=== PATIENT | male | born 1950 | race Caucasian/White ===

== ENCOUNTER 2017-03-18 11:21 | Inpatient (IN) ==
[2017-03-18] MEDS ORDERED: DOCUSATE SODIUM 100 MG CAPSULE PO PRN (12:04)
[2017-03-18] MEDS ORDERED: ONDANSETRON 4 MG/2 ML VIAL IV PRN (12:04)
[2017-03-18] MEDS ORDERED: ALBUTEROL/IPRATROPIUM 3 ML NEB RESP TX PRN (12:14)
[2017-03-18 16:22] LABS: Basophils # 0.1 10*3/uL (0.0-0.2); Basophils % 0.8 % (0.0-0.8); Eosinophils # 0.2 10*3/uL (0.0-0.87); Eosinophils % 1.7 % (0.00-10.9); Hematocrit 41.1 VOL% (42.0-52.0); Immature Granulocytes % 0.5 %; Immature Granulocytes Absolute 0.06 #; Lymphocytes # 1.8 10*3/uL (1.4-4.0); Mean Corpuscular HGB Conc 34.1 GM/DL (32-36); Mean Corpuscular Hemoglobin 31 PG (27-34); Mean Corpuscular Volume 91.3 FL (87-102); Mean Platelet Volume 10.8 FL (9.6-12.0); Monocytes # 1.2 10*3/uL (0.11-0.8); Monocytes % 10.8 % (1.7-12.7); Neutrophils # 7.7 10*3/uL (1.4-7.4); Neutrophils % 70.2 % (38.7-73.9); Platelet Count 265 T/CUMM (130-400); Red Cell Distribution Width 12.5 % (9.3-17.3)
[2017-03-18 16:53] LABS: Alanine Aminotransferase 27 U/L (16-61); Albumin 3.5 G/DL (3.4-5.0); Alkaline Phosphatase 88 U/L (45-117); Aspartate Amino Transferase 18 U/L (0-37); Bilirubin,Total < 0.39 MG/DL (0.2-1.0); Blood Urea Nitrogen 12 MG/DL (7-18); Calcium 9.3 MG/DL (8.5-10.1); Glucose 117 MG/DL (74-106); Osmolality,Calculated 266.4 MOS/KG (273-304); Potassium 3.8 MMOL/L (3.5-5.1); Sodium 133 MMOL/L (136-145); Total Protein 7.4 G/DL (6.4-8.3)
[2017-03-18] MEDS ORDERED: SILVER SULFADIAZINE 1% CREAM 25 GM TUBE TOP SCH (17:00)
[2017-03-18] MEDS: LORATADINE 10 MG TABLET PO SCH (17:08)
[2017-03-18] MEDS: methylPREDNISolone SOD SUC 125 MG/2 ML VIAL IV SCH (17:08)
[2017-03-18] MEDS: LEVOFLOXACIN INJ 500 MG in PREMIX 1 EACH IV SCH (17:08)
[2017-03-18] MEDS: SODIUM CHLORIDE 0.9% 1,000 ML IV SCH (17:09)
[2017-03-18] MEDS: SILVER SULFADIAZINE 1% CREAM 400 GM JAR TOP SCH (18:14)
[2017-03-18] MEDS: ENOXAPARIN 40 MG/0.4 ML SYRINGE SUBCUT SCH (21:10)
[2017-03-18] MEDS: ACETAMINOPHEN 325 MG TABLET PO PRN (21:10)
[2017-03-18] MEDS: SIMVASTATIN 10 MG TABLET PO SCH (21:11)
[2017-03-18] MEDS: buPROPion 75 MG TABLET PO SCH (21:11)
[2017-03-18] MEDS: CARVEDILOL 3.125 MG TABLET PO SCH (21:13)
[2017-03-19] MEDS: methylPREDNISolone SOD SUC 125 MG/2 ML VIAL IV SCH ×2 (06:09→21:29)
[2017-03-19] MEDS: FUROSEMIDE 20 MG TABLET PO SCH ×2 (08:16→15:01)
[2017-03-19] MEDS: LOSARTAN 50 MG TABLET PO SCH (08:17)
[2017-03-19] MEDS: LORATADINE 10 MG TABLET PO SCH (08:17)
[2017-03-19] MEDS: PANTOPRAZOLE 40 MG TABLET PO SCH (08:17)
[2017-03-19] MEDS: ASPIRIN 325 MG TABLET PO SCH (08:17)
[2017-03-19] MEDS: ROFLUMILAST 500 MCG TABLET PO SCH (08:17)
[2017-03-19] MEDS: CARVEDILOL 3.125 MG TABLET PO SCH ×2 (08:17→21:27)
[2017-03-19] MEDS: MINOXIDIL 2.5 MG TABLET PO SCH (08:17)
[2017-03-19] MEDS: amLODIPine 10 MG TABLET PO SCH (08:17)
[2017-03-19] MEDS: OMEGA 3 ACID ETHYL ESTERS 1 GM CAPSULE PO SCH (08:17)
[2017-03-19] MEDS: hydroCHLOROthiazide 25 MG TABLET PO SCH (08:17)
[2017-03-19] MEDS: buPROPion 75 MG TABLET PO SCH ×2 (08:18→21:27)
[2017-03-19] MEDS: MAGNESIUM CHLORIDE 64 MG TABLET PO SCH (08:18)
[2017-03-19] MEDS ORDERED: FUROSEMIDE 20 MG/2 ML VIAL IV ONE (09:00)
[2017-03-19] MEDS: SILVER SULFADIAZINE 1% CREAM 400 GM JAR TOP SCH (11:40)
[2017-03-19] MEDS: ACETAMINOPHEN 325 MG TABLET PO PRN ×2 (12:24→23:59)
[2017-03-19] MEDS: SODIUM CHLORIDE 0.9% 1,000 ML IV SCH (12:32)
[2017-03-19] MEDS: ALBUTEROL/IPRATROPIUM 3 ML NEB RESP TX SCH ×2 (13:31→19:17)
[2017-03-19] MEDS: SIMVASTATIN 10 MG TABLET PO SCH (21:27)
[2017-03-19] MEDS: ENOXAPARIN 40 MG/0.4 ML SYRINGE SUBCUT SCH (21:28)
[2017-03-19] MEDS: LEVOFLOXACIN INJ 500 MG in PREMIX 1 EACH IV SCH (21:31)
[2017-03-20] MEDS: ALBUTEROL/IPRATROPIUM 3 ML NEB RESP TX SCH ×4 (01:59→19:27)
[2017-03-20] MEDS: LOSARTAN 50 MG TABLET PO SCH (09:28)
[2017-03-20] MEDS: buPROPion 75 MG TABLET PO SCH ×2 (09:29→20:38)
[2017-03-20] MEDS: ROFLUMILAST 500 MCG TABLET PO SCH (09:29)
[2017-03-20] MEDS: amLODIPine 10 MG TABLET PO SCH (09:29)
[2017-03-20] MEDS: MINOXIDIL 2.5 MG TABLET PO SCH (09:29)
[2017-03-20] MEDS: MAGNESIUM CHLORIDE 64 MG TABLET PO SCH (09:29)
[2017-03-20] MEDS: FUROSEMIDE 20 MG TABLET PO SCH ×2 (09:29→16:57)
[2017-03-20] MEDS: PANTOPRAZOLE 40 MG TABLET PO SCH (09:29)
[2017-03-20] MEDS: methylPREDNISolone SOD SUC 125 MG/2 ML VIAL IV SCH ×2 (09:29→20:37)
[2017-03-20] MEDS: LORATADINE 10 MG TABLET PO SCH (09:29)
[2017-03-20] MEDS: ASPIRIN 325 MG TABLET PO SCH (09:29)
[2017-03-20] MEDS: hydroCHLOROthiazide 25 MG TABLET PO SCH (09:29)
[2017-03-20] MEDS: SILVER SULFADIAZINE 1% CREAM 400 GM JAR TOP SCH (09:30)
[2017-03-20] MEDS: CARVEDILOL 3.125 MG TABLET PO SCH ×2 (09:35→20:38)
[2017-03-20] MEDS: OMEGA 3 ACID ETHYL ESTERS 1 GM CAPSULE PO SCH (09:35)
[2017-03-20] MEDS: ACETAMINOPHEN 325 MG TABLET PO PRN ×2 (11:20→17:04)
[2017-03-20] MEDS: SODIUM CHLORIDE 0.9% 1,000 ML IV SCH (20:36)
[2017-03-20] MEDS: ENOXAPARIN 40 MG/0.4 ML SYRINGE SUBCUT SCH (20:37)
[2017-03-20] MEDS: LEVOFLOXACIN INJ 500 MG in PREMIX 1 EACH IV SCH (20:37)
[2017-03-20] MEDS: SIMVASTATIN 10 MG TABLET PO SCH (20:38)
[2017-03-21] MEDS: ALBUTEROL/IPRATROPIUM 3 ML NEB RESP TX SCH ×4 (00:37→19:55)
[2017-03-21 05:51] LABS: Basophils % 0.1 % (0.0-0.8); Eosinophils % 0.1 % (0.00-10.9); Hematocrit 39.1 VOL% (42.0-52.0); Hemoglobin 13.4 GM/DL (14.0-18.0); Immature Granulocytes % 0.7 %; Immature Granulocytes Absolute 0.12 #; Lymphocytes # 1.2 10*3/uL (1.4-4.0); Lymphocytes % 6.6 % (21.2-54.2); Mean Corpuscular HGB Conc 34.3 GM/DL (32-36); Mean Corpuscular Hemoglobin 31 PG (27-34); Mean Corpuscular Volume 90.7 FL (87-102); Mean Platelet Volume 10.8 FL (9.6-12.0); Monocytes # 0.5 10*3/uL (0.11-0.8); Monocytes % 2.6 % (1.7-12.7); Neutrophils % 89.9 % (38.7-73.9); Platelet Count 287 T/CUMM (130-400); Red Blood Count 4.31 MC/CUMM (3.8-5.5); Red Cell Distribution Width 12.5 % (9.3-17.3); White Blood Count 17.8 T/CUMM (4-12)
[2017-03-21 06:08] LABS: Calcium 8.5 MG/DL (8.5-10.1); Magnesium 2.3 MG/DL (1.8-2.4); Potassium 4.4 MMOL/L (3.5-5.1)
[2017-03-21] MEDS: ACETAMINOPHEN 325 MG TABLET PO PRN ×2 (08:04→16:08)
[2017-03-21] MEDS: FUROSEMIDE 20 MG TABLET PO SCH ×2 (08:04→16:58)
[2017-03-21] MEDS: LORATADINE 10 MG TABLET PO SCH (09:28)
[2017-03-21] MEDS: MINOXIDIL 2.5 MG TABLET PO SCH (09:28)
[2017-03-21] MEDS: buPROPion 75 MG TABLET PO SCH ×2 (09:28→21:27)
[2017-03-21] MEDS: OMEGA 3 ACID ETHYL ESTERS 1 GM CAPSULE PO SCH (09:28)
[2017-03-21] MEDS: LOSARTAN 50 MG TABLET PO SCH (09:28)
[2017-03-21] MEDS: hydroCHLOROthiazide 25 MG TABLET PO SCH (09:28)
[2017-03-21] MEDS: ROFLUMILAST 500 MCG TABLET PO SCH (09:28)
[2017-03-21] MEDS: CARVEDILOL 3.125 MG TABLET PO SCH ×2 (09:28→21:27)
[2017-03-21] MEDS: MAGNESIUM CHLORIDE 64 MG TABLET PO SCH (09:28)
[2017-03-21] MEDS: amLODIPine 10 MG TABLET PO SCH (09:28)
[2017-03-21] MEDS: ASPIRIN 325 MG TABLET PO SCH (09:29)
[2017-03-21] MEDS: methylPREDNISolone SOD SUC 125 MG/2 ML VIAL IV SCH ×2 (09:29→21:31)
[2017-03-21] MEDS: PANTOPRAZOLE 40 MG TABLET PO SCH (09:34)
[2017-03-21] MEDS: SILVER SULFADIAZINE 1% CREAM 400 GM JAR TOP SCH (09:34)
[2017-03-21] MEDS: SODIUM CHLORIDE 0.9% 1,000 ML IV SCH (17:35)
[2017-03-21] MEDS: LEVOFLOXACIN INJ 500 MG in PREMIX 1 EACH IV SCH (21:25)
[2017-03-21] MEDS: ENOXAPARIN 40 MG/0.4 ML SYRINGE SUBCUT SCH (21:27)
[2017-03-21] MEDS: SIMVASTATIN 10 MG TABLET PO SCH (21:27)
[2017-03-22] MEDS: ALBUTEROL/IPRATROPIUM 3 ML NEB RESP TX SCH ×5 (00:02→20:31)
[2017-03-22] MEDS: ACETAMINOPHEN 325 MG TABLET PO PRN ×3 (02:18→21:04)
[2017-03-22] MEDS: amLODIPine 10 MG TABLET PO SCH (09:38)
[2017-03-22] MEDS: hydroCHLOROthiazide 25 MG TABLET PO SCH (09:38)
[2017-03-22] MEDS: LOSARTAN 50 MG TABLET PO SCH (09:39)
[2017-03-22] MEDS: ROFLUMILAST 500 MCG TABLET PO SCH (09:39)
[2017-03-22] MEDS: buPROPion 75 MG TABLET PO SCH ×2 (09:39→21:03)
[2017-03-22] MEDS: MAGNESIUM CHLORIDE 64 MG TABLET PO SCH (09:39)
[2017-03-22] MEDS: OMEGA 3 ACID ETHYL ESTERS 1 GM CAPSULE PO SCH (09:39)
[2017-03-22] MEDS: PANTOPRAZOLE 40 MG TABLET PO SCH (09:39)
[2017-03-22] MEDS: FUROSEMIDE 20 MG TABLET PO SCH ×2 (09:39→16:32)
[2017-03-22] MEDS: LORATADINE 10 MG TABLET PO SCH (09:40)
[2017-03-22] MEDS: CARVEDILOL 3.125 MG TABLET PO SCH ×2 (09:40→21:03)
[2017-03-22] MEDS: methylPREDNISolone SOD SUC 125 MG/2 ML VIAL IV SCH ×2 (09:40→21:05)
[2017-03-22] MEDS: MINOXIDIL 2.5 MG TABLET PO SCH (09:40)
[2017-03-22] MEDS: ASPIRIN 325 MG TABLET PO SCH (09:40)
[2017-03-22] MEDS: SILVER SULFADIAZINE 1% CREAM 400 GM JAR TOP SCH (09:47)
[2017-03-22] MEDS: SODIUM CHLORIDE 0.9% 1,000 ML IV SCH (16:32)
[2017-03-22] MEDS: SIMVASTATIN 10 MG TABLET PO SCH (21:03)
[2017-03-22] MEDS: LEVOFLOXACIN INJ 500 MG in PREMIX 1 EACH IV SCH (21:05)
[2017-03-22] MEDS: ENOXAPARIN 40 MG/0.4 ML SYRINGE SUBCUT SCH (21:06)
[2017-03-23] MEDS: ALBUTEROL/IPRATROPIUM 3 ML NEB RESP TX SCH ×2 (01:30→07:37)
[2017-03-23] MEDS: LOSARTAN 50 MG TABLET PO SCH (08:51)
[2017-03-23] MEDS: MINOXIDIL 2.5 MG TABLET PO SCH (08:51)
[2017-03-23] MEDS: LORATADINE 10 MG TABLET PO SCH (08:51)
[2017-03-23] MEDS: OMEGA 3 ACID ETHYL ESTERS 1 GM CAPSULE PO SCH (08:51)
[2017-03-23] MEDS: ROFLUMILAST 500 MCG TABLET PO SCH (08:51)
[2017-03-23] MEDS: MAGNESIUM CHLORIDE 64 MG TABLET PO SCH (08:51)
[2017-03-23] MEDS: hydroCHLOROthiazide 25 MG TABLET PO SCH (08:52)
[2017-03-23] MEDS: methylPREDNISolone SOD SUC 125 MG/2 ML VIAL IV SCH (08:52)
[2017-03-23] MEDS: ASPIRIN 325 MG TABLET PO SCH (08:52)
[2017-03-23] MEDS: FUROSEMIDE 20 MG TABLET PO SCH (08:52)
[2017-03-23] MEDS: buPROPion 75 MG TABLET PO SCH (08:52)
[2017-03-23] MEDS: CARVEDILOL 3.125 MG TABLET PO SCH (08:52)
[2017-03-23] MEDS: amLODIPine 10 MG TABLET PO SCH (08:52)
[2017-03-23] MEDS: PANTOPRAZOLE 40 MG TABLET PO SCH (08:52)
[2017-03-23] MEDS: ACETAMINOPHEN 325 MG TABLET PO PRN (08:59)
[2017-03-23] MEDS: SILVER SULFADIAZINE 1% CREAM 400 GM JAR TOP SCH (09:01)
[2017-03-23 12:07] VITALS: BP 185/80
== END 2017-03-23 12:20 | disposition home or self-care (01) | DRG 603 ==
LOC: N.2E
PROVIDERS: ADMIT Family Medicine; ATTEND Family Medicine

== ENCOUNTER 2018-01-22 20:22 | Inpatient (IN) ==
[2018-01-22] MEDS ORDERED: ALBUTEROL/IPRATROPIUM 3 ML NEB RESP TX STA (21:18)
[2018-01-22] MEDS ORDERED: methylPREDNISolone SOD SUC 125 MG/2 ML VIAL IV STA (21:18)
[2018-01-22 21:21] LABS: Basophils # 0.1 10*3/uL (0.0-0.2); Basophils % 0.5 % (0.0-0.8); Eosinophils # 0.3 10*3/uL (0.0-0.87); Eosinophils % 1.2 % (0.00-10.9); Hematocrit 40.2 VOL% (42.0-52.0); Immature Granulocytes % 0.6 %; Immature Granulocytes Absolute 0.13 #; Lymphocytes # 1.7 10*3/uL (1.4-4.0); Lymphocytes % 7.7 % (21.2-54.2); Mean Corpuscular HGB Conc 34.8 GM/DL (32-36); Mean Corpuscular Hemoglobin 32 PG (27-34); Mean Corpuscular Volume 91.6 FL (87-102); Monocytes # 2.3 10*3/uL (0.11-0.8); Monocytes % 10.2 % (1.7-12.7); Neutrophils # 17.7 10*3/uL (1.4-7.4); Neutrophils % 79.8 % (38.7-73.9); Platelet Count 224 T/CUMM (130-400); Red Blood Count 4.39 MC/CUMM (3.8-5.5); Red Cell Distribution Width 13.1 % (9.3-17.3); White Blood Count 22.2 T/CUMM (4-12)
[2018-01-22 21:36] LABS: Lactic Acid 1.3 MMOL/L (0.4-2.0)
[2018-01-22 21:43] LABS: Albumin 3.3 G/DL (3.4-5.0); Bilirubin,Total 0.5 MG/DL (0.2-1.0); Calcium 9.1 MG/DL (8.5-10.1); Osmolality,Calculated 278.4 MOS/KG (273-304); Total Protein 7.4 G/DL (6.4-8.3)
[2018-01-22 22:06] LABS: Band Neutrophils 1 % (0-10); Eosinophils 3 % (0-10); Lymphocytes 9 % (20-55); Platelet Estimate Normal; Segmented Neutrophils 81 % (50-85); Total Cells Counted 100
[2018-01-22] MEDS ORDERED: LEVOFLOXACIN INJ 500 MG in PREMIX 1 EACH IV STA (23:33)
[2018-01-23] MEDS ORDERED: amLODIPine 10 MG TABLET ONE (00:14)
[2018-01-23] MEDS: ACETAMINOPHEN 500 MG TABLET PO ONE ×2 (00:35→00:40)
[2018-01-23] MEDS ORDERED: ACETAMINOPHEN 500 MG TABLET PO ONE (00:40)
[2018-01-23] MEDS ORDERED: ONDANSETRON 4 MG/2 ML VIAL IV PRN (01:12)
[2018-01-23] MEDS: LEVOFLOXACIN INJ 500 MG in PREMIX 1 EACH IV SCH (02:10)
[2018-01-23] MEDS: SODIUM CHLORIDE 0.9% 1,000 ML IV SCH ×2 (03:57→12:58)
[2018-01-23 06:03] LABS: Basophils # 0.1 10*3/uL (0.0-0.2); Basophils % 0.2 % (0.0-0.8); Hematocrit 36.7 VOL% (42.0-52.0); Hemoglobin 12.2 GM/DL (14.0-18.0); Immature Granulocytes % 1.5 %; Immature Granulocytes Absolute 0.32 #; Lymphocytes % 4.5 % (21.2-54.2); Mean Corpuscular HGB Conc 33.2 GM/DL (32-36); Mean Corpuscular Hemoglobin 31 PG (27-34); Mean Corpuscular Volume 93.1 FL (87-102); Mean Platelet Volume 10.3 FL (9.6-12.0); Monocytes # 0.2 10*3/uL (0.11-0.8); Neutrophils % 92.8 % (38.7-73.9); Platelet Count 243 T/CUMM (130-400); Red Blood Count 3.94 MC/CUMM (3.8-5.5); Red Cell Distribution Width 13.2 % (9.3-17.3); White Blood Count 21.6 T/CUMM (4-12)
[2018-01-23 06:22] LABS: Band Neutrophils 1 % (0-10); Eosinophils 1 % (0-10); Lymphocytes 3 % (20-55); Segmented Neutrophils 93 % (50-85); Total Cells Counted 100
[2018-01-23 06:23] LABS: Hypochromasia Slight; Microcytosis Slight; Platelet Estimate Normal
[2018-01-23 06:24] LABS: Calcium 8.7 MG/DL (8.5-10.1); Osmolality,Calculated 278.8 MOS/KG (273-304); Potassium 3.4 MMOL/L (3.5-5.1)
[2018-01-23 06:28] LABS: Troponin I < 0.015 NG/ML (0.00-0.045)
[2018-01-23] MEDS ORDERED: methylPREDNISolone SOD SUC 40 MG/1 ML VIAL IV SCH (06:30)
[2018-01-23] MEDS: ALBUTEROL/IPRATROPIUM 3 ML NEB RESP TX SCH ×3 (06:51→19:13)
[2018-01-23] MEDS ORDERED: amLODIPine 5 MG TABLET PO SCH (09:00)
[2018-01-23 09:15] LABS: Troponin I < 0.015 NG/ML (0.00-0.045)
[2018-01-23] MEDS: FUROSEMIDE 20 MG TABLET PO SCH ×2 (09:44→21:47)
[2018-01-23] MEDS: PANTOPRAZOLE 40 MG TABLET PO SCH (09:44)
[2018-01-23] MEDS: ACETAMINOPHEN 325 MG TABLET PO PRN (10:35)
[2018-01-23] MEDS ORDERED: NITROGLYCERIN SL 0.4 MG TABLET SL PRN ×2 (14:12→14:49)
[2018-01-23] MEDS ORDERED: ASPIRIN EC 325 MG TABLET PO SCH (14:13)
[2018-01-23] MEDS ORDERED: FUROSEMIDE 20 MG/2 ML VIAL IV ONE (14:17)
[2018-01-23] MEDS ORDERED: POTASSIUM CHLORIDE 20 MEQ TABLET PO SCH (14:30)
[2018-01-23] MEDS ORDERED: SODIUM CHLORIDE 0.9% 1,000 ML IV SCH (14:30)
[2018-01-23] MEDS ORDERED: CARVEDILOL 3.125 MG TABLET PO SCH (14:30)
[2018-01-23] MEDS ORDERED: CILOSTAZOL 50 MG TABLET PO SCH (14:30)
[2018-01-23] MEDS ORDERED: ASPIRIN CHEW 81 MG TABLET PO ONE ×2 (14:49)
[2018-01-23 15:09] LABS: Basophils # 0.1 10*3/uL (0.0-0.2); Basophils % 0.2 % (0.0-0.8); Hematocrit 37.3 VOL% (42.0-52.0); Immature Granulocytes % 0.9 %; Immature Granulocytes Absolute 0.23 #; Lymphocytes # 1.5 10*3/uL (1.4-4.0); Lymphocytes % 5.6 % (21.2-54.2); Mean Corpuscular HGB Conc 34.9 GM/DL (32-36); Mean Corpuscular Hemoglobin 32 PG (27-34); Mean Platelet Volume 10.4 FL (9.6-12.0); Monocytes # 0.8 10*3/uL (0.11-0.8); Monocytes % 2.8 % (1.7-12.7); Neutrophils # 24.3 10*3/uL (1.4-7.4); Neutrophils % 90.5 % (38.7-73.9); Platelet Count 248 T/CUMM (130-400); Red Cell Distribution Width 13.1 % (9.3-17.3); White Blood Count 26.8 T/CUMM (4-12)
[2018-01-23] MEDS: MORPHINE 4 MG/1 ML VIAL IV PRN ×2 (15:10→16:05)
[2018-01-23 15:30] LABS: Lymphocytes 6 % (20-55); Platelet Estimate Adequate; Segmented Neutrophils 92 % (50-85); Total Cells Counted 100
[2018-01-23] MEDS ORDERED: TICAGRELOR 90 MG TABLET PO ONE (15:38)
[2018-01-23 15:39] LABS: Albumin 3.1 G/DL (3.4-5.0); Bilirubin,Total 0.4 MG/DL (0.2-1.0); Calcium 8.8 MG/DL (8.5-10.1); Potassium 3.1 MMOL/L (3.5-5.1); Total Protein 7.5 G/DL (6.4-8.3)
[2018-01-23] MEDS ORDERED: POTASSIUM CHLORIDE 20 MEQ TABLET PO ONE (15:49)
[2018-01-23] MEDS ORDERED: MAGNESIUM SULF RIDER 2 GM in PREMIX 1 EACH IV ONE (15:50)
[2018-01-23] MEDS ORDERED: MAGNESIUM SULF RIDER 2 GM in PREMIX 1 EACH IV PRN (15:56)
[2018-01-23] MEDS: amLODIPine 10 MG TABLET PO SCH (16:04)
[2018-01-23] MEDS: methylPREDNISolone SOD SUC 40 MG/1 ML VIAL IV SCH ×2 (16:06→21:47)
[2018-01-23] MEDS: buPROPion 75 MG TABLET PO SCH ×2 (16:21→21:48)
[2018-01-23] MEDS: ROFLUMILAST 500 MCG TABLET PO SCH (16:21)
[2018-01-23] MEDS ORDERED: NITROGLYCERIN DRIP 50 MG/250 ML BOTTLE IV PRN (16:45)
[2018-01-23] MEDS ORDERED: NITROGLYCERIN 2% OINT 1 INCH/GM PACK TOP SCH (18:00)
[2018-01-23] MEDS: ENOXAPARIN 80 MG/0.8 ML SYRINGE SUBCUT SCH (18:26)
[2018-01-23 20:37] LABS: CKMB % 0.7 %
[2018-01-23 20:39] LABS: Troponin I 0.956 NG/ML (0.00-0.045)
[2018-01-23] MEDS: ROSUVASTATIN 20 MG TABLET PO SCH (21:48)
[2018-01-23] MEDS: CARVEDILOL 6.25 MG TABLET PO SCH (21:48)
[2018-01-24] MEDS: ALBUTEROL/IPRATROPIUM 3 ML NEB RESP TX SCH ×4 (00:39→19:11)
[2018-01-24] MEDS: LEVOFLOXACIN INJ 500 MG in PREMIX 1 EACH IV SCH (01:42)
[2018-01-24] MEDS: ACETAMINOPHEN 325 MG TABLET PO PRN ×3 (01:43→22:30)
[2018-01-24] MEDS: guaiFENesin 200 MG/10 ML UDCUP PO PRN ×3 (01:43→23:00)
[2018-01-24 03:13] LABS: Basophils % 0.1 % (0.0-0.8); Hematocrit 34.1 VOL% (42.0-52.0); Hemoglobin 11.5 GM/DL (14.0-18.0); Immature Granulocytes % 1.6 %; Immature Granulocytes Absolute 0.46 #; Lymphocytes # 1.4 10*3/uL (1.4-4.0); Lymphocytes % 4.8 % (21.2-54.2); Mean Corpuscular HGB Conc 33.7 GM/DL (32-36); Mean Corpuscular Hemoglobin 31 PG (27-34); Mean Corpuscular Volume 92.2 FL (87-102); Mean Platelet Volume 10.5 FL (9.6-12.0); Monocytes # 1.2 10*3/uL (0.11-0.8); Neutrophils # 26.4 10*3/uL (1.4-7.4); Neutrophils % 89.5 % (38.7-73.9); Platelet Count 247 T/CUMM (130-400); Red Cell Distribution Width 13.1 % (9.3-17.3); White Blood Count 29.5 T/CUMM (4-12)
[2018-01-24 04:01] LABS: Lymphocytes 4 % (20-55); Segmented Neutrophils 94 % (50-85); Total Cells Counted 100
[2018-01-24 04:02] LABS: Platelet Estimate Normal; Polychromasia Few
[2018-01-24 04:03] LABS: Albumin 2.8 G/DL (3.4-5.0); Bilirubin,Total 0.6 MG/DL (0.2-1.0); Calcium 8.3 MG/DL (8.5-10.1); Osmolality,Calculated 284.4 MOS/KG (273-304); Potassium 3.5 MMOL/L (3.5-5.1); Risk Ratio 2.51; Thyroid Stimulating Hormone 0.194 uIU/ml (0.358-3.74); Total Protein 6.6 G/DL (6.4-8.3)
[2018-01-24 04:14] LABS: CKMB % 0.5 %; Troponin I 1.43 NG/ML (0.00-0.045)
[2018-01-24 05:47] LABS: CKMB % 0.5 %; Troponin I 1.4 NG/ML (0.00-0.045)
[2018-01-24] MEDS: ENOXAPARIN 80 MG/0.8 ML SYRINGE SUBCUT SCH ×2 (06:38→16:49)
[2018-01-24] MEDS: methylPREDNISolone SOD SUC 40 MG/1 ML VIAL IV SCH ×3 (06:39→23:30)
[2018-01-24] MEDS ORDERED: NON-FORMULARY MEDICATION (Tiotropium Inhalation 18 MCG) INH SCH (09:00)
[2018-01-24] MEDS: PANTOPRAZOLE 40 MG TABLET PO SCH (09:35)
[2018-01-24] MEDS: FUROSEMIDE 20 MG/2 ML VIAL IV SCH (09:35)
[2018-01-24] MEDS: amLODIPine 10 MG TABLET PO SCH (09:36)
[2018-01-24] MEDS: ROFLUMILAST 500 MCG TABLET PO SCH (09:36)
[2018-01-24] MEDS: buPROPion 75 MG TABLET PO SCH ×2 (09:36→21:02)
[2018-01-24] MEDS: CARVEDILOL 6.25 MG TABLET PO SCH ×2 (09:36→21:03)
[2018-01-24] MEDS: ASPIRIN EC 81 MG TABLET PO SCH (09:36)
[2018-01-24] MEDS: MAGNESIUM CHLORIDE 64 MG TABLET PO SCH (09:36)
[2018-01-24] MEDS: TICAGRELOR 90 MG TABLET PO SCH ×2 (09:36→21:03)
[2018-01-24] MEDS: FUROSEMIDE 20 MG TABLET PO SCH ×2 (11:58→21:02)
[2018-01-24] MEDS: MORPHINE 4 MG/1 ML VIAL IV PRN (20:24)
[2018-01-24] MEDS: ROSUVASTATIN 20 MG TABLET PO SCH (21:02)
[2018-01-24] MEDS: NITROGLYCERIN 2% OINT 1 INCH/GM PACK TOP SCH (21:30)
[2018-01-25] MEDS: ALBUTEROL/IPRATROPIUM 3 ML NEB RESP TX SCH ×4 (00:56→19:36)
[2018-01-25] MEDS: LEVOFLOXACIN INJ 500 MG in PREMIX 1 EACH IV SCH (02:28)
[2018-01-25] MEDS: NITROGLYCERIN 2% OINT 1 INCH/GM PACK TOP SCH ×4 (02:29→21:43)
[2018-01-25] MEDS: guaiFENesin 200 MG/10 ML UDCUP PO PRN (02:29)
[2018-01-25 05:37] LABS: Basophils % 0.1 % (0.0-0.8); Immature Granulocytes Absolute 0.27 #; Lymphocytes % 3.6 % (21.2-54.2); Mean Corpuscular HGB Conc 33.3 GM/DL (32-36); Mean Corpuscular Hemoglobin 31 PG (27-34); Mean Corpuscular Volume 91.8 FL (87-102); Mean Platelet Volume 10.3 FL (9.6-12.0); Monocytes % 3.9 % (1.7-12.7); Neutrophils # 24.2 10*3/uL (1.4-7.4); Neutrophils % 91.4 % (38.7-73.9); Platelet Count 288 T/CUMM (130-400); Red Blood Count 3.92 MC/CUMM (3.8-5.5); Red Cell Distribution Width 13.2 % (9.3-17.3); White Blood Count 26.5 T/CUMM (4-12)
[2018-01-25 06:05] LABS: Calcium 8.1 MG/DL (8.5-10.1); Osmolality,Calculated 285.4 MOS/KG (273-304); Potassium 3.4 MMOL/L (3.5-5.1)
[2018-01-25 06:37] LABS: Lymphocytes 1 % (20-55); Platelet Estimate Normal; Segmented Neutrophils 97 % (50-85); Total Cells Counted 100
[2018-01-25] MEDS: ENOXAPARIN 80 MG/0.8 ML SYRINGE SUBCUT SCH ×2 (06:59→16:41)
[2018-01-25] MEDS: methylPREDNISolone SOD SUC 40 MG/1 ML VIAL IV SCH ×3 (06:59→21:44)
[2018-01-25 08:50] LABS: Troponin I 0.448 NG/ML (0.00-0.045)
[2018-01-25] MEDS: TICAGRELOR 90 MG TABLET PO SCH ×2 (08:50→21:43)
[2018-01-25] MEDS: CARVEDILOL 6.25 MG TABLET PO SCH ×2 (08:52→21:42)
[2018-01-25] MEDS: buPROPion 75 MG TABLET PO SCH ×2 (08:52→21:42)
[2018-01-25] MEDS: MAGNESIUM CHLORIDE 64 MG TABLET PO SCH (08:52)
[2018-01-25] MEDS: ASPIRIN EC 81 MG TABLET PO SCH (08:53)
[2018-01-25] MEDS: PANTOPRAZOLE 40 MG TABLET PO SCH (08:53)
[2018-01-25] MEDS: POTASSIUM CHLORIDE 20 MEQ TABLET PO PRN ×3 (08:53→14:00)
[2018-01-25] MEDS: FUROSEMIDE 20 MG TABLET PO SCH (08:53)
[2018-01-25] MEDS: ROFLUMILAST 500 MCG TABLET PO SCH (08:54)
[2018-01-25] MEDS: FUROSEMIDE 20 MG/2 ML VIAL IV SCH (08:54)
[2018-01-25] MEDS: amLODIPine 10 MG TABLET PO SCH (08:57)
[2018-01-25] MEDS: ACETAMINOPHEN 325 MG TABLET PO PRN ×2 (09:53→16:08)
[2018-01-25] MEDS: ISOSORBIDE MONONITRATE 30 MG TABLET PO SCH (11:03)
[2018-01-25] MEDS ORDERED: methylPREDNISolone SOD SUC 40 MG/1 ML VIAL IV SCH (19:04)
[2018-01-25] MEDS ORDERED: BENZONATATE 100 MG CAPSULE PO SCH (21:00)
[2018-01-25] MEDS: ROSUVASTATIN 20 MG TABLET PO SCH (21:42)
[2018-01-25] MEDS: CLINDAMYCIN INJ 300 MG in PREMIX 1 EACH IV SCH (21:45)
[2018-01-26] MEDS ORDERED: INFLUENZA VIRUS VACCINE 0.5 ML SYRINGE IM ONE (00:01)
[2018-01-26] MEDS: ALBUTEROL/IPRATROPIUM 3 ML NEB RESP TX SCH ×4 (00:28→19:41)
[2018-01-26] MEDS: LEVOFLOXACIN INJ 500 MG in PREMIX 1 EACH IV SCH (00:54)
[2018-01-26] MEDS: cloNIDine 0.1 MG TABLET PO SCH ×2 (00:54→21:02)
[2018-01-26] MEDS: CLINDAMYCIN INJ 300 MG in PREMIX 1 EACH IV SCH ×3 (03:13→19:01)
[2018-01-26] MEDS: NITROGLYCERIN 2% OINT 1 INCH/GM PACK TOP SCH ×4 (03:14→21:08)
[2018-01-26 03:42] LABS: Basophils % 0.1 % (0.0-0.8); Hematocrit 34.4 VOL% (42.0-52.0); Hemoglobin 11.3 GM/DL (14.0-18.0); Immature Granulocytes % 0.9 %; Lymphocytes # 1.1 10*3/uL (1.4-4.0); Lymphocytes % 5.1 % (21.2-54.2); Mean Corpuscular HGB Conc 32.8 GM/DL (32-36); Mean Corpuscular Hemoglobin 30 PG (27-34); Mean Corpuscular Volume 92.5 FL (87-102); Mean Platelet Volume 10.4 FL (9.6-12.0); Monocytes # 1.3 10*3/uL (0.11-0.8); Monocytes % 6.2 % (1.7-12.7); Neutrophils # 18.5 10*3/uL (1.4-7.4); Neutrophils % 87.7 % (38.7-73.9); Platelet Count 276 T/CUMM (130-400); Red Blood Count 3.72 MC/CUMM (3.8-5.5); Red Cell Distribution Width 13.1 % (9.3-17.3); White Blood Count 21.1 T/CUMM (4-12)
[2018-01-26 03:56] LABS: Calcium 8.3 MG/DL (8.5-10.1); Osmolality,Calculated 285.4 MOS/KG (273-304); Potassium 3.9 MMOL/L (3.5-5.1)
[2018-01-26 04:08] LABS: Platelet Estimate Normal
[2018-01-26] MEDS: ENOXAPARIN 80 MG/0.8 ML SYRINGE SUBCUT SCH ×2 (06:45→17:05)
[2018-01-26] MEDS: methylPREDNISolone SOD SUC 40 MG/1 ML VIAL IV SCH ×3 (06:45→21:08)
[2018-01-26] MEDS: POTASSIUM CHLORIDE 20 MEQ TABLET PO PRN (06:46)
[2018-01-26] MEDS: TICAGRELOR 90 MG TABLET PO SCH ×2 (09:21→21:01)
[2018-01-26] MEDS: ASPIRIN EC 81 MG TABLET PO SCH (09:21)
[2018-01-26] MEDS: CARVEDILOL 6.25 MG TABLET PO SCH ×2 (09:21→21:02)
[2018-01-26] MEDS: ROFLUMILAST 500 MCG TABLET PO SCH (09:22)
[2018-01-26] MEDS: ISOSORBIDE MONONITRATE 30 MG TABLET PO SCH (09:22)
[2018-01-26] MEDS: amLODIPine 10 MG TABLET PO SCH (09:23)
[2018-01-26] MEDS: MAGNESIUM CHLORIDE 64 MG TABLET PO SCH (09:23)
[2018-01-26] MEDS: PANTOPRAZOLE 40 MG TABLET PO SCH (09:23)
[2018-01-26] MEDS: buPROPion 75 MG TABLET PO SCH ×2 (09:24→21:03)
[2018-01-26] MEDS: FUROSEMIDE 20 MG/2 ML VIAL IV SCH (09:25)
[2018-01-26] MEDS: ACETAMINOPHEN 325 MG TABLET PO PRN ×2 (11:58→21:14)
[2018-01-26] MEDS ORDERED: diphenhydrAMINE CAP 25 MG CAPSULE PO ONE (14:37)
[2018-01-26] MEDS ORDERED: MAGNESIUM SULF RIDER 2 GM in PREMIX 1 EACH IV PRN (14:37)
[2018-01-26] MEDS ORDERED: DIAZEPAM 5 MG TABLET PO ONE (14:37)
[2018-01-26] MEDS ORDERED: POTASSIUM CHLORIDE RIDER 10 MEQ in PREMIX 1 EACH IV PRN (14:37)
[2018-01-26] MEDS: ROSUVASTATIN 20 MG TABLET PO SCH (21:02)
[2018-01-26] MEDS: guaiFENesin 200 MG/10 ML UDCUP PO PRN (21:03)
[2018-01-27] MEDS: ALBUTEROL/IPRATROPIUM 3 ML NEB RESP TX SCH ×4 (00:35→19:06)
[2018-01-27] MEDS: LEVOFLOXACIN INJ 500 MG in PREMIX 1 EACH IV SCH (01:31)
[2018-01-27] MEDS: CLINDAMYCIN INJ 300 MG in PREMIX 1 EACH IV SCH ×3 (03:08→18:29)
[2018-01-27] MEDS: NITROGLYCERIN 2% OINT 1 INCH/GM PACK TOP SCH ×4 (03:11→21:22)
[2018-01-27 04:29] LABS: Basophils % 0.1 % (0.0-0.8); Hematocrit 34.7 VOL% (42.0-52.0); Hemoglobin 11.3 GM/DL (14.0-18.0); Immature Granulocytes % 0.7 %; Immature Granulocytes Absolute 0.13 #; Lymphocytes # 1.5 10*3/uL (1.4-4.0); Lymphocytes % 8.6 % (21.2-54.2); Mean Corpuscular HGB Conc 32.6 GM/DL (32-36); Mean Corpuscular Hemoglobin 30 PG (27-34); Mean Corpuscular Volume 92.5 FL (87-102); Mean Platelet Volume 10.5 FL (9.6-12.0); Monocytes # 1.4 10*3/uL (0.11-0.8); Monocytes % 7.7 % (1.7-12.7); Neutrophils # 14.8 10*3/uL (1.4-7.4); Neutrophils % 82.9 % (38.7-73.9); Platelet Count 252 T/CUMM (130-400); Red Blood Count 3.75 MC/CUMM (3.8-5.5); White Blood Count 17.9 T/CUMM (4-12)
[2018-01-27 05:04] LABS: Calcium 8.1 MG/DL (8.5-10.1); Osmolality,Calculated 283.5 MOS/KG (273-304); Potassium 3.9 MMOL/L (3.5-5.1)
[2018-01-27] MEDS: methylPREDNISolone SOD SUC 40 MG/1 ML VIAL IV SCH ×3 (05:48→21:20)
[2018-01-27] MEDS: ENOXAPARIN 80 MG/0.8 ML SYRINGE SUBCUT SCH (05:52)
[2018-01-27] MEDS: SODIUM CHLORIDE 0.45% 1,000 ML IV SCH ×2 (06:45→16:30)
[2018-01-27] MEDS ORDERED: diphenhydrAMINE CAP 50 MG CAPSULE ONE (07:04)
[2018-01-27] MEDS ORDERED: DIAZEPAM 5 MG TABLET ONE (07:04)
[2018-01-27] MEDS: PANTOPRAZOLE 40 MG TABLET PO SCH ×2 (07:29→08:11)
[2018-01-27] MEDS: ISOSORBIDE MONONITRATE 30 MG TABLET PO SCH ×2 (07:30→08:11)
[2018-01-27] MEDS: TICAGRELOR 90 MG TABLET PO SCH ×3 (07:30→21:20)
[2018-01-27] MEDS ORDERED: methylPREDNISolone SOD SUC 40 MG/1 ML VIAL IV SCH (07:30)
[2018-01-27] MEDS: ASPIRIN EC 81 MG TABLET PO SCH ×2 (07:30→08:10)
[2018-01-27] MEDS: CARVEDILOL 6.25 MG TABLET PO SCH ×3 (07:31→21:20)
[2018-01-27] MEDS: amLODIPine 10 MG TABLET PO SCH ×2 (07:31→08:11)
[2018-01-27] MEDS ORDERED: VERAPAMIL 5 MG/2 ML VIAL ONE (08:35)
[2018-01-27] MEDS ORDERED: NITROGLYCERIN DRIP 50 MG/250 ML BOTTLE IV ONE (08:35)
[2018-01-27] MEDS ORDERED: MIDAZOLAM 2 MG/2 ML VIAL ONE (08:37)
[2018-01-27] MEDS ORDERED: fentaNYL 100 MCG/2 ML VIAL ONE (08:38)
[2018-01-27] MEDS ORDERED: diphenhydrAMINE CAP 25 MG CAPSULE PO ONE (09:00)
[2018-01-27] MEDS ORDERED: DIAZEPAM 5 MG TABLET PO ONE (09:00)
[2018-01-27] MEDS ORDERED: EPTIFIBATIDE 20,000 MCG/10 ML VIAL ONE (09:05)
[2018-01-27] MEDS ORDERED: EPTIFIBATIDE 75 MG/100 ML BOTTLE IV ONE (09:05)
[2018-01-27] MEDS: FUROSEMIDE 20 MG/2 ML VIAL IV SCH (11:46)
[2018-01-27] MEDS: ROFLUMILAST 500 MCG TABLET PO SCH (11:46)
[2018-01-27] MEDS: buPROPion 75 MG TABLET PO SCH ×2 (11:46→21:20)
[2018-01-27] MEDS: MAGNESIUM CHLORIDE 64 MG TABLET PO SCH (11:46)
[2018-01-27] MEDS: ACETAMINOPHEN 325 MG TABLET PO PRN (18:39)
[2018-01-27] MEDS: ROSUVASTATIN 20 MG TABLET PO SCH (21:20)
[2018-01-27] MEDS: cloNIDine 0.1 MG TABLET PO SCH (21:20)
[2018-01-28] MEDS: LEVOFLOXACIN INJ 500 MG in PREMIX 1 EACH IV SCH (00:01)
[2018-01-28] MEDS: SODIUM CHLORIDE 0.45% 1,000 ML IV SCH (00:02)
[2018-01-28] MEDS: ALBUTEROL/IPRATROPIUM 3 ML NEB RESP TX SCH ×2 (00:35→07:41)
[2018-01-28] MEDS: CLINDAMYCIN INJ 300 MG in PREMIX 1 EACH IV SCH (03:34)
[2018-01-28] MEDS: NITROGLYCERIN 2% OINT 1 INCH/GM PACK TOP SCH ×2 (03:34→08:52)
[2018-01-28] MEDS ORDERED: ENOXAPARIN 40 MG/0.4 ML SYRINGE SUBCUT SCH (03:55)
[2018-01-28 05:32] LABS: Basophils % 0.1 % (0.0-0.8); Hematocrit 33.7 VOL% (42.0-52.0); Hemoglobin 11.1 GM/DL (14.0-18.0); Immature Granulocytes % 1.2 %; Immature Granulocytes Absolute 0.24 #; Lymphocytes % 9.7 % (21.2-54.2); Mean Corpuscular HGB Conc 32.9 GM/DL (32-36); Mean Corpuscular Hemoglobin 31 PG (27-34); Mean Corpuscular Volume 92.6 FL (87-102); Mean Platelet Volume 10.9 FL (9.6-12.0); Monocytes # 1.5 10*3/uL (0.11-0.8); Monocytes % 7.4 % (1.7-12.7); Neutrophils # 16.6 10*3/uL (1.4-7.4); Neutrophils % 81.6 % (38.7-73.9); Platelet Count 253 T/CUMM (130-400); Red Blood Count 3.64 MC/CUMM (3.8-5.5); Red Cell Distribution Width 12.6 % (9.3-17.3); White Blood Count 20.3 T/CUMM (4-12)
[2018-01-28 05:51] LABS: Blood Urea Nitrogen 28 MG/DL (7-18); Calcium 7.6 MG/DL (8.5-10.1); Glucose 102 MG/DL (74-106); Sodium 136 MMOL/L (136-145)
[2018-01-28 06:18] LABS: Band Neutrophils 1 % (0-10); Lymphocytes 16 % (20-55); Platelet Estimate Normal; Segmented Neutrophils 78 % (50-85); Total Cells Counted 100
[2018-01-28] MEDS: CARVEDILOL 6.25 MG TABLET PO SCH (08:51)
[2018-01-28] MEDS: ASPIRIN EC 81 MG TABLET PO SCH (08:52)
[2018-01-28] MEDS: buPROPion 75 MG TABLET PO SCH (08:52)
[2018-01-28] MEDS: PANTOPRAZOLE 40 MG TABLET PO SCH (08:52)
[2018-01-28] MEDS: ISOSORBIDE MONONITRATE 30 MG TABLET PO SCH (08:52)
[2018-01-28] MEDS: ROFLUMILAST 500 MCG TABLET PO SCH (08:52)
[2018-01-28] MEDS: amLODIPine 10 MG TABLET PO SCH (08:52)
[2018-01-28] MEDS: TICAGRELOR 90 MG TABLET PO SCH (08:52)
[2018-01-28] MEDS: MAGNESIUM CHLORIDE 64 MG TABLET PO SCH (08:52)
[2018-01-28] MEDS: FUROSEMIDE 20 MG/2 ML VIAL IV SCH (08:53)
[2018-01-28] MEDS ORDERED: FUROSEMIDE 20 MG TABLET PO SCH ×2 (09:00→16:00)
[2018-01-28] MEDS ORDERED: predniSONE 20 MG TABLET PO SCH (09:00)
[2018-01-28] MEDS ORDERED: NEBIVOLOL 5 MG TABLET PO SCH (09:00)
[2018-01-28] MEDS ORDERED: LOSARTAN 50 MG TABLET PO SCH (09:00)
[2018-01-28] MEDS ORDERED: LEVOFLOXACIN 500 MG TABLET PO SCH (09:00)
[2018-01-28] MEDS ORDERED: hydroCHLOROthiazide 25 MG TABLET PO SCH (09:00)
[2018-01-28 11:53] VITALS: BP 143/80
[2018-01-28] MEDS ORDERED: INFLUENZA VIRUS VACCINE 0.5 ML SYRINGE IM ONE (12:47)
[2018-01-28] MEDS ORDERED: PNEUMOCOCCAL VACCINE (13 VALENT) 0.5 ML SYRINGE IM ONE (12:59)
[2018-01-28] MEDS ORDERED: SIMVASTATIN 10 MG TABLET PO SCH (21:00)
== END 2018-01-28 14:53 | disposition home or self-care (01) | DRG 982 ==
LOC: N.ED 20:22 → N.EDINP 23:43 → N.2E 01-23 00:14 → N.ICU 01-23 14:58 → N.TELEN 01-26 16:43
PROVIDERS: ADMIT Family Medicine; ATTEND Family Medicine
PROC: CLCCHCL (ICD-10-PCS; 2018-01-27 09:15)

== ENCOUNTER 2020-04-27 07:38 | Inpatient (IN) ==
[2020-04-27 08:45] LABS: Basophils # 0.1 10*3/uL (0.0-0.2); Basophils % 0.5 % (0.0-0.8); Eosinophils # 0.1 10*3/uL (0.0-0.87); Eosinophils % 0.3 % (0.00-10.9); Hematocrit 47.6 VOL% (42.0-52.0); Hemoglobin 16.1 GM/DL (14.0-18.0); Immature Granulocytes % 0.4 %; Immature Granulocytes Absolute 0.07 #; Lymphocytes # 1.5 10*3/uL (1.4-4.0); Lymphocytes % 9.2 % (21.2-54.2); Mean Corpuscular HGB Conc 33.8 GM/DL (32-36); Mean Corpuscular Volume 92.6 FL (87-102); Mean Platelet Volume 9.7 FL (9.6-12.0); Monocytes % 15.2 % (1.7-12.7); Neutrophils % 74.4 % (38.7-73.9); Platelet Count 220 T/CUMM (130-400); Red Blood Count 5.14 MC/CUMM (3.8-5.5); Red Cell Distribution Width 12.9 % (9.3-17.3); White Blood Count 16.3 T/CUMM (4-12)
[2020-04-27 09:11] LABS: Albumin 3.4 G/DL (3.4-5.0); Bilirubin,Total 0.8 MG/DL (0.2-1.0); Calcium 9.5 MG/DL (8.5-10.1); Osmolality,Calculated 268.4 MOS/KG (273-304); Potassium 3.4 MMOL/L (3.5-5.1); Total Protein 8.1 G/DL (6.4-8.3)
[2020-04-27 12:16] LABS: Cholesterol Crystals None Seen /LPF
[2020-04-27 12:20] LABS: Lymphocytes,Synovial Fluid 5 %; Neutrophils,Synovial Fluid 94 %
[2020-04-27 12:57] LABS: Glucose,Synovial Fluid 3 MG/DL
[2020-04-27] MEDS ORDERED: ONDANSETRON 4 MG/2 ML VIAL IV PRN (13:38)
[2020-04-27] MEDS ORDERED: ALBUTEROL 2.5 MG/3 ML NEB RESP TX PRN (13:52)
[2020-04-27] MEDS: cefTRIAXone 1,000 MG in SYRINGE 1 EACH IV SCH (15:15)
[2020-04-27] MEDS: SODIUM CHLORIDE 0.9% 1,000 ML IV SCH ×2 (15:15→23:15)
[2020-04-27] MEDS: ENOXAPARIN 40 MG/0.4 ML SYRINGE SUBCUT SCH (15:35)
[2020-04-27] MEDS: VANCOMYCIN INJ 1,250 MG in SODIUM CHLORIDE 0.9% 250 ML IV SCH (18:35)
[2020-04-27] MEDS: buPROPion 75 MG TABLET PO SCH (21:45)
[2020-04-27] MEDS: ROSUVASTATIN 20 MG TABLET PO SCH (21:45)
[2020-04-27] MEDS: TICAGRELOR 90 MG TABLET PO SCH (21:45)
[2020-04-27] MEDS: DOCUSATE SODIUM 100 MG CAPSULE PO SCH (21:45)
[2020-04-28] MEDS ORDERED: ALBUTEROL 2.5 MG/3 ML NEB RESP TX ONE (08:31)
[2020-04-28] MEDS ORDERED: NITROGLYCERIN SL 0.4 MG TABLET SL PRN (08:39)
[2020-04-28] MEDS ORDERED: propofoL 200 MG/20 ML VIAL IV ONE (09:45)
[2020-04-28] MEDS ORDERED: SEVOFLURANE 1 UNIT/15 MINUTE INH ONE ×2 (09:45→11:00)
[2020-04-28] MEDS ORDERED: LIDOCAINE 2% 5 ML VIAL ONE (09:45)
[2020-04-28] MEDS ORDERED: ONDANSETRON 4 MG/2 ML VIAL ONE (09:45)
[2020-04-28] MEDS ORDERED: DEXAMETHASONE 4 MG/1 ML VIAL ONE ×2 (09:45→10:29)
[2020-04-28] MEDS ORDERED: fentaNYL 100 MCG/2 ML VIAL ONE (09:45)
[2020-04-28] MEDS ORDERED: MIDAZOLAM 2 MG/2 ML VIAL ONE (09:45)
[2020-04-28] MEDS: SODIUM CHLORIDE 0.9% 1,000 ML IV SCH ×2 (10:02→17:47)
[2020-04-28] MEDS ORDERED: KETOROLAC 30 MG/1 ML VIAL ONE (10:29)
[2020-04-28] MEDS ORDERED: ACETAMINOPHEN 1,000 MG/100 ML VIAL IV ONE (10:31)
[2020-04-28] MEDS ORDERED: MAGNESIUM HYDROXIDE SUSP 30 ML UDCUP PO PRN (10:59)
[2020-04-28] MEDS ORDERED: diphenhydrAMINE CAP 25 MG CAPSULE PO PRN (10:59)
[2020-04-28] MEDS ORDERED: MORPHINE 4 MG/1 ML VIAL IV PRN (10:59)
[2020-04-28] MEDS ORDERED: PHENYLEPHRINE 1 MG/10 ML SYRINGE IV ONE (11:00)
[2020-04-28] MEDS: DOCUSATE SODIUM 100 MG CAPSULE PO SCH ×2 (15:02→21:13)
[2020-04-28] MEDS: TICAGRELOR 90 MG TABLET PO SCH ×2 (15:02→21:13)
[2020-04-28] MEDS: ASPIRIN EC 81 MG TABLET PO SCH (15:02)
[2020-04-28] MEDS: MAGNESIUM CHLORIDE 64 MG TABLET PO SCH (15:03)
[2020-04-28] MEDS: FUROSEMIDE 20 MG TABLET PO SCH (15:03)
[2020-04-28] MEDS: PANTOPRAZOLE 40 MG TABLET PO SCH (15:03)
[2020-04-28] MEDS: ISOSORBIDE MONONITRATE 30 MG TABLET PO SCH (15:03)
[2020-04-28] MEDS: LOSARTAN 50 MG TABLET PO SCH (15:03)
[2020-04-28] MEDS: ROFLUMILAST 500 MCG TABLET PO SCH (15:03)
[2020-04-28] MEDS: NON-FORMULARY MEDICATION (Umeclidinium-Vilanterol [Anoro Ellipta] 62.5-25 mcg/actuation Bl INH SCH (15:04)
[2020-04-28] MEDS: buPROPion 75 MG TABLET PO SCH ×2 (15:04→21:13)
[2020-04-28] MEDS: ENOXAPARIN 40 MG/0.4 ML SYRINGE SUBCUT SCH ×2 (15:18→15:21)
[2020-04-28] MEDS: cefTRIAXone 1,000 MG in SYRINGE 1 EACH IV SCH (15:19)
[2020-04-28] MEDS: ACETAMINOPHEN 325 MG TABLET PO PRN (15:28)
[2020-04-28] MEDS: VANCOMYCIN INJ 1,250 MG in SODIUM CHLORIDE 0.9% 250 ML IV SCH (17:48)
[2020-04-28] MEDS: ROSUVASTATIN 20 MG TABLET PO SCH (21:13)
[2020-04-28 22:57] LABS: Bilirubin,Urine Negative (Negative); Blood, Urine Large mg/dL (Negative); Glucose,Urine (UA) Negative (Negative); Granular Casts,Urine 12 /LPF (0-1); Ketones,Urine Negative (Negative); Mucus,Urine Occasional /LPF (Occasional); Nitrite,Urine Negative (Negative); Protein,Urine >=500 MG/DL; RBC,Urine 99 /HPF (0-4); Red Blood Cell Casts,Urine 7 /LPF (<1); Squamous Epithelial Cell,Urine Occasional /HPF (0-10); Urine Appearance Slightly Hazy (Clear); Urine Color Amber (Yellow); Urine Urobilinogen < 2.0 EU/DL (0.2-1.0); WBC,Urine 3 /HPF (0-6)
[2020-04-29] MEDS: SODIUM CHLORIDE 0.9% 1,000 ML IV SCH ×3 (03:31→14:31)
[2020-04-29 05:51] LABS: Calcium 8.6 MG/DL (8.5-10.1); Osmolality,Calculated 282.7 MOS/KG (273-304); Potassium 4.3 MMOL/L (3.5-5.1)
[2020-04-29] MEDS: ROFLUMILAST 500 MCG TABLET PO SCH ×2 (07:23→08:48)
[2020-04-29] MEDS: NON-FORMULARY MEDICATION (Umeclidinium-Vilanterol [Anoro Ellipta] 62.5-25 mcg/actuation Bl INH SCH ×2 (07:24→08:48)
[2020-04-29] MEDS: ISOSORBIDE MONONITRATE 30 MG TABLET PO SCH (08:45)
[2020-04-29] MEDS: PANTOPRAZOLE 40 MG TABLET PO SCH (08:45)
[2020-04-29] MEDS: DOCUSATE SODIUM 100 MG CAPSULE PO SCH ×2 (08:45→21:02)
[2020-04-29] MEDS: ASPIRIN EC 81 MG TABLET PO SCH (08:45)
[2020-04-29] MEDS: LOSARTAN 50 MG TABLET PO SCH (08:45)
[2020-04-29] MEDS: FUROSEMIDE 20 MG TABLET PO SCH (08:45)
[2020-04-29] MEDS: TICAGRELOR 90 MG TABLET PO SCH ×2 (08:46→21:02)
[2020-04-29] MEDS: MAGNESIUM CHLORIDE 64 MG TABLET PO SCH (08:46)
[2020-04-29 08:47] LABS: Basophils % 0.1 % (0.0-0.8); Hematocrit 44.6 VOL% (42.0-52.0); Hemoglobin 14.6 GM/DL (14.0-18.0); Immature Granulocytes % 0.6 %; Immature Granulocytes Absolute 0.12 #; Lymphocytes # 0.8 10*3/uL (1.4-4.0); Lymphocytes % 3.9 % (21.2-54.2); Mean Corpuscular HGB Conc 32.7 GM/DL (32-36); Mean Corpuscular Volume 95.3 FL (87-102); Mean Platelet Volume 10.2 FL (9.6-12.0); Monocytes % 10.6 % (1.7-12.7); Neutrophils % 84.8 % (38.7-73.9); Platelet Count 179 T/CUMM (130-400); Red Blood Count 4.68 MC/CUMM (3.8-5.5); Red Cell Distribution Width 12.7 % (9.3-17.3); White Blood Count 20.8 T/CUMM (4-12)
[2020-04-29] MEDS: buPROPion 75 MG TABLET PO SCH ×2 (08:49→21:02)
[2020-04-29 09:09] LABS: Band Neutrophils 9 % (0-10); Lymphocytes 5 % (20-55); Segmented Neutrophils 78 % (50-85); Total Cells Counted 100
[2020-04-29 09:10] LABS: Anisocytosis 1+; Macrocytosis Slight; Platelet Estimate Normal
[2020-04-29] MEDS: ACETAMINOPHEN 325 MG TABLET PO PRN ×2 (13:08→21:02)
[2020-04-29] MEDS: ENOXAPARIN 40 MG/0.4 ML SYRINGE SUBCUT SCH (13:59)
[2020-04-29] MEDS: cefTRIAXone 1,000 MG in SYRINGE 1 EACH IV SCH (14:30)
[2020-04-29] MEDS: VANCOMYCIN INJ 1,250 MG in SODIUM CHLORIDE 0.9% 250 ML IV SCH (17:43)
[2020-04-29] MEDS: ROSUVASTATIN 20 MG TABLET PO SCH (21:02)
[2020-04-30] MEDS: SODIUM CHLORIDE 0.9% 1,000 ML IV SCH (00:52)
[2020-04-30 05:50] LABS: Basophils # 0.1 10*3/uL (0.0-0.2); Basophils % 0.5 % (0.0-0.8); Eosinophils # 0.2 10*3/uL (0.0-0.87); Eosinophils % 1.1 % (0.00-10.9); Hematocrit 40.8 VOL% (42.0-52.0); Hemoglobin 13.3 GM/DL (14.0-18.0); Immature Granulocytes % 0.4 %; Immature Granulocytes Absolute 0.07 #; Lymphocytes # 1.8 10*3/uL (1.4-4.0); Lymphocytes % 11.1 % (21.2-54.2); Mean Corpuscular HGB Conc 32.6 GM/DL (32-36); Mean Corpuscular Volume 96.5 FL (87-102); Mean Platelet Volume 10.2 FL (9.6-12.0); Monocytes % 12.7 % (1.7-12.7); Neutrophils % 74.2 % (38.7-73.9); Platelet Count 174 T/CUMM (130-400); Red Blood Count 4.23 MC/CUMM (3.8-5.5); Red Cell Distribution Width 12.7 % (9.3-17.3); White Blood Count 16.4 T/CUMM (4-12)
[2020-04-30 06:08] LABS: Calcium 8.5 MG/DL (8.5-10.1); Osmolality,Calculated 282.4 MOS/KG (273-304); Potassium 3.6 MMOL/L (3.5-5.1)
[2020-04-30] MEDS: ISOSORBIDE MONONITRATE 30 MG TABLET PO SCH (08:42)
[2020-04-30] MEDS: TICAGRELOR 90 MG TABLET PO SCH ×2 (08:42→20:48)
[2020-04-30] MEDS: ASPIRIN EC 81 MG TABLET PO SCH (08:42)
[2020-04-30] MEDS: DOCUSATE SODIUM 100 MG CAPSULE PO SCH ×2 (08:42→20:48)
[2020-04-30] MEDS: ROFLUMILAST 500 MCG TABLET PO SCH (08:42)
[2020-04-30] MEDS: LOSARTAN 50 MG TABLET PO SCH (08:42)
[2020-04-30] MEDS: FUROSEMIDE 20 MG TABLET PO SCH (08:42)
[2020-04-30] MEDS: MAGNESIUM CHLORIDE 64 MG TABLET PO SCH (08:43)
[2020-04-30] MEDS: NON-FORMULARY MEDICATION (Umeclidinium-Vilanterol [Anoro Ellipta] 62.5-25 mcg/actuation Bl INH SCH (08:43)
[2020-04-30] MEDS: PANTOPRAZOLE 40 MG TABLET PO SCH (08:43)
[2020-04-30] MEDS: buPROPion 75 MG TABLET PO SCH ×2 (08:43→20:48)
[2020-04-30] MEDS: ACETAMINOPHEN 325 MG TABLET PO PRN ×2 (10:20→17:11)
[2020-04-30] MEDS ORDERED: methylPREDNISolone SOD SUC 40 MG/1 ML VIAL IV ONE (12:00)
[2020-04-30] MEDS: ALBUTEROL 2.5 MG/3 ML NEB RESP TX SCH ×2 (13:40→19:52)
[2020-04-30] MEDS: ENOXAPARIN 40 MG/0.4 ML SYRINGE SUBCUT SCH (15:24)
[2020-04-30] MEDS: cefTRIAXone 1,000 MG in SYRINGE 1 EACH IV SCH (15:24)
[2020-04-30] MEDS: VANCOMYCIN INJ 1,250 MG in SODIUM CHLORIDE 0.9% 250 ML IV SCH (17:11)
[2020-04-30] MEDS: ROSUVASTATIN 20 MG TABLET PO SCH (20:48)
[2020-04-30] MEDS: methylPREDNISolone SOD SUC 40 MG/1 ML VIAL IV SCH (21:04)
[2020-05-01] MEDS: ALBUTEROL 2.5 MG/3 ML NEB RESP TX SCH ×2 (00:24→07:45)
[2020-05-01] MEDS: SODIUM CHLORIDE 0.9% 1,000 ML IV SCH (01:13)
[2020-05-01] MEDS: ASPIRIN EC 81 MG TABLET PO SCH (09:42)
[2020-05-01] MEDS: ISOSORBIDE MONONITRATE 30 MG TABLET PO SCH (09:43)
[2020-05-01] MEDS: DOCUSATE SODIUM 100 MG CAPSULE PO SCH (09:43)
[2020-05-01] MEDS: FUROSEMIDE 20 MG TABLET PO SCH (09:43)
[2020-05-01] MEDS: TICAGRELOR 90 MG TABLET PO SCH (09:43)
[2020-05-01] MEDS: LOSARTAN 50 MG TABLET PO SCH (09:43)
[2020-05-01] MEDS: ROFLUMILAST 500 MCG TABLET PO SCH (09:43)
[2020-05-01] MEDS: buPROPion 75 MG TABLET PO SCH (09:44)
[2020-05-01] MEDS: MAGNESIUM CHLORIDE 64 MG TABLET PO SCH (09:44)
[2020-05-01] MEDS: PANTOPRAZOLE 40 MG TABLET PO SCH (09:44)
[2020-05-01] MEDS: NON-FORMULARY MEDICATION (Umeclidinium-Vilanterol [Anoro Ellipta] 62.5-25 mcg/actuation Bl INH SCH (09:45)
[2020-05-01] MEDS: methylPREDNISolone SOD SUC 40 MG/1 ML VIAL IV SCH (09:53)
[2020-05-01 11:49] VITALS: BP 175/82
== END 2020-05-01 13:50 | disposition home or self-care (01) | DRG 487 ==
LOC: N.ED 07:38 → N.EDINP 13:38 → N.3E 15:51
PROVIDERS: ADMIT Family Medicine; ATTEND Family Medicine